=== PATIENT | male | born 1955 | race Caucasian/White ===

== ENCOUNTER 2019-11-19 01:57 | Inpatient (IN) ==
[2019-11-19] MEDS ORDERED: IOPAMIDOL 100 ML BOTTLE IV ONE (01:58)
[2019-11-19] MEDS ORDERED: 0.9 % SODIUM CHLORIDE 2,000 ML IV ONE (02:04)
[2019-11-19] MEDS ORDERED: ONDANSETRON 4 MG/2 ML VIAL IV ONE ×2 (02:04→14:40)
[2019-11-19] MEDS ORDERED: HYDROmorphone 0.5 MG/0.5 ML SYRINGE IV PRN ×2 (02:04→15:44)
[2019-11-19] MEDS ORDERED: ACETAMINOPHEN 325 MG TABLET PO ONE (02:04)
--- NOTE | 2019-11-19 02:22 | Emergency Department Note ---
Abdominal Pain HPI General Chief Complaint: Abdominal Pain Stated Complaint: lower left Abd. Pain Time Seen by Provider: 11/19/19 02:04 Source: patient Mode of arrival: EMS Limitations: no limitations History of Present Illness HPI Narrative: Narrative: 64-year-old male presents to [facility] in [place] with left lower quadrant pain for the last 4 days. This is his second round of diverticulitis that he was diagnosed with since getting a colonoscopy a couple of months ago. Anyways he was worked up this morning and had an elevated white count and was sent home with Zofran Flagyl and ciprofloxacin but his symptoms became worse and he developed a fever. So he came back and I was contacted by the physician's esol teacher assistant, Zafar Arroyo out there. I agreed to accept the patient for further work-up and care of diverticulitis. He is transported via ambulance. He notes nausea and vomiting. I reviewed records from [place] which showed a white count of 16.9 normal CMP lactic acid from earlier today. They do not have CT capability out there He notes a history of multiple musculoskeletal surgeries but no belly surgery. He does think he has a inguinal hernia as well Related Data Home Medications Medication Instructions Recorded Confirmed albuterol sulfate 2 puff INHALATION BID 11/19/19 11/19/19 albuterol sulfate [ProAir HFA] 2 inh INHALATION BID 11/19/19 11/19/19 lamotrigine [Lamictal] 200 mg PO QDAY 11/19/19 11/19/19 omeprazole 40 mg PO QDAY 11/19/19 11/19/19 Allergies Allergy/AdvReac Type Severity Reaction Status Date / Time Penicillins Allergy Severe Anaphylaxis Verified 11/19/19 02:02 Sulfa (Sulfonamide AdvReac Intermediate Rash Verified 11/19/19 02:02 Antibiotics) Review of Systems ROS ROS Narrative: Narrative: All systems ED: reviewed and negative except as stated. PFSH Narrative Patient History Narrative: Narrative: Medical/Surgical/Family History All Active Problems (Updated 11/19/19 @ 03:42 by Zafar Nam MD) Incarcerated inguinal hernia (Acute) Diverticulitis (Acute) Depression (Acute) GERD (gastroesophageal reflux disease) (Acute) COPD (chronic obstructive pulmonary disease) (Acute) Social History Smoking Status: Current every day smoker Exam Narrative Narrative: Narrative: He is resting in the bed comfortable. Normocephalic atraumatic. Conjunctive are clear sclerae white nonicteric. No nasal discharge or congestion. Oropharynx pink and moist. Heart is regular rate and rhythm no murmur appreciated. Lungs are clear to auscultation bilaterally without wheezes rales rhonchi or respiratory distress. Abdomen is soft mildly diffusely tender but especially tender at the left lower quadrant-such that he about jumped off the bed. No pedal edema. Alert oriented but febrile General Limitations: no limitations Course Vital Signs Vital signs: Vital Signs Temperature 100.9 F H 11/19/19 01:58 Pulse Rate 50 L 11/19/19 01:58 Respiratory Rate 17 11/19/19 01:58 Blood Pressure 140/103 11/19/19 01:58 Pulse Oximetry (%) 95 11/19/19 01:58 Temperature 100.9 F H 11/19/19 02:14 Pulse Rate 89 11/19/19 03:34 Respiratory Rate 17 11/19/19 01:58 Blood Pressure 117/85 11/19/19 03:34 Pulse Oximetry (%) 96 11/19/19 03:34 [facility] MDM Narrative Medical decision making narrative: Narrative: Likely diverticulitis but other intra-abdominal pathology such as abscess, masses, obstruction etc. cannot be ruled out. CT scan of the abdomen and pelvis with contrast is ordered along with repeat lactic acid. Start IV fluids Dilaudid Zofran. He is already had antibiotics today so we will hold off for now. Tylenol for fever He does not have a lactic acidosis. CT scan shows a loop of large bowel with diverticulitis inside of the left inguinal hernia. Discussed this finding with the surgeon on-call, Dr. Binh Zuniga. He agreed to accept the patient for further care and evaluation in the hospital. I will start him on some cefepime as he is allergic to penicillin and write orders. Dr. Zuniga will plan on doing surgery later this afternoon I discussed these findings with the patient. He is agreeable with the plan. I will give him some Protonix for his GERD Lab Data Lab results reviewed: Yes I reviewed the patient's lab results. Labs: Lab Results 11/19/19 11/19/19 Range/Units 02:15 02:15 VBG Lactic Acid 1.2 (0.5-2.0) mmol/L POC Creatinine 1.2 (0.7-1.2) mg/dl Radiology Data Radiology results reviewed: Yes I reviewed the patient's radiology results. Radiology results narrative: CT scan of the abdomen pelvis with contrast shows diverticulitis in the sigmoid colon-a loop of which may be incarcerated in the inguinal hernia on the left. Discharge Plan Patient/Caregiver Discharge Instructions Pt seen by SQUIRREL WORKER/PA only: No Clinical Impression: Incarcerated inguinal hernia, Diverticulitis Patient Disposition: Xfer As Inpt ([facility]) Condition: Serious Follow up with: Binh Zuniga MD [Physician] - Prescriptions: No Action lamotrigine [Lamictal] 200 mg Tablet 200 mg PO QDAY RF: 0 omeprazole 40 mg Capsule,Delayed Release(Dr/Ec) 40 mg PO QDAY RF: 0 albuterol sulfate 90 mcg/actuation Hfa Aerosol Inhaler 2 puff INHALATION BID RF: 0 albuterol sulfate [ProAir HFA] 90 mcg/actuation Hfa Aerosol Inhaler 2 inh INHALATION BID RF: 0
[2019-11-19 02:29] LABS: POC Creatinine 1.2 mg/dl (0.7-1.2)
[2019-11-19] MEDS ORDERED: PANTOPRAZOLE 40 MG TABLET PO ONE (03:25)
[2019-11-19] MEDS ORDERED: NALOXONE HCL 0.4 MG/ML VIAL IV PRN ×2 (03:43→15:44)
[2019-11-19] MEDS ORDERED: ALBUTEROL SULFATE 200 PUFF INHALER INH PRN ×2 (03:43→17:26)
[2019-11-19] MEDS ORDERED: ONDANSETRON 4 MG/2 ML VIAL IV PRN ×3 (03:43→17:26)
[2019-11-19] MEDS: morphine 2 MG/ML VIAL IV PRN ×3 (04:33→08:02)
[2019-11-19] MEDS: CEFEPIME 2 GM VIAL IV SCH ×3 (05:51→20:48)
[2019-11-19] MEDS: 0.9 % SODIUM CHLORIDE 1,000 ML IV SCH ×4 (05:51→18:00)
--- NOTE | 2019-11-19 06:02 | Cat Scan Report ---
INDICATION: LLQ pain. History of previous diverticulitis COMPARISON: Prior examination dated 07/25/2019 TECHNIQUE: Axial images were obtained through the abdomen and pelvis. Sagittally and coronally reformatted images. 80 mL Isovue 370 injected intravenously. Oral contrast material was not administered FINDINGS: Lung bases:Mild bilateral lower lobe dependent atelectasis. There is a moderate hiatal hernia. Distal esophagus contains fluid. There is no pleural effusion. No pericardial effusion. Liver:Negative. No focal intrahepatic mass. No focal abnormality. Liver contour is smooth. No evidence for cirrhosis Gallbladder, bilary:No calcified gallstones. No gallbladder wall thickening. No dilated intra or extrahepatic bile ducts. Spleen:No splenomegaly. Normal enhancement of splenic and portal veins. Pancreas:No pancreatic mass. No peripancreatic abnormality Adrenal glands:Negative Kidneys, ureters, bladder:No solid or cystic renal mass. No hydronephrosis. No obstructing calculi. There is no hydroureter. No ureteral stone No bladder calculi or detectable mass Gastrointestinal: There is distal descending colon and sigmoid colon diverticulosis. There is diverticulitis at the descending sigmoid junction with pericolonic infiltration. No discrete abscess. There is a left inguinal hernia which contains colon. There is wall thickening and pericolonic infiltration. This is probably diverticulitis within a left inguinal hernia. Ischemic bowel is not excluded. There is mural enhancement. No focal fluid collection or extraluminal abscess. Small bowel is negative. No mechanical small bowel obstruction. Stomach and duodenum are unremarkable Appendix: The appendix is negative Vascular:Negative abdominal aorta. There is calcified plaque but no abdominal aortic aneurysm. Superior mesenteric artery and celiac trunk are normal. Normal opacification of the inferior mesenteric artery Lymphatic:No retroperitoneal or mesenteric adenopathy Mesentery, peritoneum: No free intraperitoneal fluid. No mesenteric or retroperitoneal mass. Reproductive:Prostate is not significantly enlarged Musculoskeletal:No lumbar compression fractures. Sacrum and pelvis are negative. No hip fracture.. There is a left inguinal hernia which contains colon. As described above there is wall thickening and pericolonic inflammatory change most consistent with diverticulitis within the hernia sac. Bowel ischemia is not excluded. There is also an umbilical hernia. This is small with cross-sectional diameter of the hernia defect measuring 7 mm. There is mesenteric fat within this umbilical hernia. There is some increased density which may represent fat ischemia or infarction. IMPRESSION: 1. Left lower quadrant diverticulitis 2. Left inguinal hernia containing colon. Findings are most consistent with diverticulitis within the hernia sac. Ischemic bowel is also possible 3. Small umbilical hernia containing mesenteric fat. It is density within the fat which may indicate fat infarction 4. Moderate hiatal hernia The exam was performed using radiation dose optimization techniques including, but not limited to, automated exposure control, adjustment of the mA and/or kV according to patient size and use of iterative reconstruction technique. Interpreted and Authenticated by: Jack Tiwari 11/19/19
[2019-11-19] MEDS ORDERED: HYDROmorphone 1 MG/ML SYRINGE IV PRN (08:29)
[2019-11-19] MEDS ORDERED: lamoTRIgine 100 MG TABLET PO SCH (09:00)
[2019-11-19] MEDS ORDERED: NICOTINE 21 MG PATCH TOPICAL SCH (10:00)
[2019-11-19] MEDS ORDERED: metroNIDAZOLE 500 MG/100 ML BAG IV SCH (14:00)
--- NOTE | 2019-11-19 14:14 | General Surg History&Physical ---
HPI History of Present Illness Patient information: Note initiated : 11/19/19 at 1:50 pm Service Date, if different from initiated Date: [] Patient: Adonis Henson a 64 y/o M admitted on 11/19/19 for Lt Lower Abd Pain. Chief Complaint: [] History of present illness: Mr. Henson is a 64 year old M admitted with pain in his left lower abdomen. The patient has a history of left inguinal hernia for greater than a year. He has a four-day history of crampy pain in his left groin. This was followed by severe swelling and tenderness with sweats. He did not have nausea vomiting. He noted that the pain became much more severe yesterday. He was seen in the emergency room in [place] late yesterday evening and transferred with presumptive diagnosis of incarcerated hernia. CT shows sigmoid diverticulitis and incarcerated of the inflamed segment and the hernia with severe tissue edema. Because of poor perfusion there is concern about possible vascular compromise of the incarcerated segment. He is developing some erythema of the hernia site. Patient is counseled for inguinal exploration with attempts at reduction but with the possibility of need for laparotomy with colon resection and colostomy. Constitutional Constitutional: Present anorexia, chills, fever(s), malaise and night sweats EENT Eyes: Absent blurry vision and pain Ears: Absent decreased hearing and tinnitus Nose, mouth and throat: Present abnormal hearing; Absent dizziness, dysphagia and hoarseness Cardiovascular Cardiovascular: Present dyspnea on exertion, lightheadedness and rapid heart rate; Absent chest pain, claudication and pedal edema Respiratory Respiratory: Absent cough, dyspnea, wheezing and pain with cough Gastrointestinal Gastrointestinal: Present change in stool character, constipation and nausea; Absent vomiting Genitourinary Genitourinary: change in urinary stream, scrotal swelling, testicular mass and testicular pain Musculoskeletal Musculoskeletal: Present abnormal gait and myalgias Integumentary Integumentary: Absent pruritus and rash Neurological Neurological: Present dizziness Psychiatric Psychiatric: Present abnormal sleep pattern, behavioral changes, irritability, mood swings and other (bipolar disorder) Endocrine Endocrine: Present excessive sweating and palpitations Hematologic/Lymphatic Hematologic/Lymphatic: Absent easy bleeding, easy bruising and lymphadenopathy Allergic/Immunologic Allergic/Immunologic: Absent tongue swelling, throat swelling, itchy eyes, uticaria, wheezing and lip swelling PFSH PFS Family History (Updated 11/19/19 @ 14:03 by Eileen Zuniga MD) Mother No problems noted. Mother , complications a small bowel obstruction No problems noted. Father , complications of chronic obstructive lung disease No problems noted. Social History (Updated 11/20/19 @ 14:11 by Eileen Zuniga MD) smoking status: Current every day smoker alcohol intake frequency: does not drink substance use type: does not use MEDS/ALLERGIES Home Medications and Allergies Home Medications Medication Instructions Recorded Confirmed Type albuterol sulfate 2 puff INHALATION BID 11/19/19 11/19/19 History albuterol sulfate [ProAir HFA] 2 inh INHALATION BID 11/19/19 11/19/19 History lamotrigine [Lamictal] 200 mg PO QDAY 11/19/19 11/19/19 History omeprazole 40 mg PO QDAY 11/19/19 11/19/19 History quetiapine [Seroquel] 200 mg PO QHS 11/19/19 11/19/19 History Allergies Allergy/AdvReac Type Severity Reaction Status Date / Time Penicillins Allergy Severe Anaphylaxis Verified 11/19/19 02:02 Sulfa (Sulfonamide AdvReac Intermediate Rash Verified 11/19/19 02:02 Antibiotics) Physical Examination Vital Signs Vital signs: Temp Pulse Resp BP Pulse Ox 99.6 F H 88 16 124/69 93 11/19/19 12:00 11/19/19 12:00 11/19/19 12:00 11/19/19 12:00 11/19/19 12:00 General physical appearance General physical exam: well developed, well nourished, no distress and severe pa in Eyes Eye exam: PERRL and normal ocular movement ENT ENT exam: normal nares and no congestion Head Head exam IM: Present atraumatic, normal inspection and normocephalic Neck Neck exam: no masses, no bruits, trachea midline and no venous distension Cardiovascular Cardiovascular exam IM: Present normal rate and rhythm, RRR, +S1 and +S2; Absent JVD Respiratory Respiratory exam: normal expansion, normal respiratory effort, clear to percussion and clear to auscultation Abdomen Abdomen: Present tender (exquisite tenderness left lower quadrant) and bowel sounds (hyperactive bowel sounds) Hernia: Present inguinal (incarcerated left inguinal hernia) Integumentary Integumentary: Present no rash, no growths and no abnormal pigmentation Neurologic Neurologic: Present normal coordination and normal sensation Musculoskeletal Musculoskeletal: Present normal gait and normal posture Psychiatric Psychiatric: Present oriented to time, oriented to person, oriented to place, speech is normal and memory intact Results Labs Result diagrams: 11/20/19 06:00 11/20/19 06:00 Labs: All other labs normal. A/P Assessment and plan (1) Incarcerated inguinal hernia: Status: Acute (2) Depression: Status: Acute Qualifiers: Active/Remission status: remission status unspecified Depression Type: major depressive disorder Major depression recurrence: unspecified whether recurrent Qualified Code(s): F32.9 - Major depressive disorder, single episode, unspecified (3) GERD (gastroesophageal reflux disease): Status: Acute (4) Diverticulitis: Status: Acute (5) COPD (chronic obstructive pulmonary disease): Status: Acute Qualifiers: COPD type: emphysema Narrative A/P Narrative: patient has incarcerated colon with diverticulitis in left inguinal hernia. He will need emergency exploration and may potentially need colon resection with colostomy. He is informed of this and wishes to proceed with surgery. Time Spent With Patient Time: Total time spent is greater than 50% in coordination of care (as documented) at patient's floor/unit and/or counseling patient:
[2019-11-19] MEDS ORDERED: KETAMINE 100 MG/ML ML IV ONE (14:40)
[2019-11-19] MEDS ORDERED: DEXAMETHASONE 10 MG/ML VIAL IV ONE (14:40)
[2019-11-19] MEDS ORDERED: fentaNYL 250 MCG/5 ML VIAL IV ONE (14:40)
[2019-11-19] MEDS ORDERED: HYDROmorphone 1 MG/ML SYRINGE IV ONE (14:40)
[2019-11-19] MEDS ORDERED: PROPOFOL 200 MG/20 ML VIAL IV ONE (14:40)
[2019-11-19] MEDS ORDERED: HETASTARCH 6% 500 ML BAG IV ONE (14:40)
[2019-11-19] MEDS ORDERED: ROPIVACAINE HCL/PF 30 ML VIAL IJ ONE (14:40)
[2019-11-19] MEDS ORDERED: LIDOCAINE HCL/PF 100 MG/5 ML SYRINGE IV ONE (14:40)
[2019-11-19] MEDS ORDERED: ROCURONIUM 10 MG/ML ML IV ONE (14:40)
[2019-11-19] MEDS ORDERED: SUGAMMADEX SODIUM 200 MG/2 ML VIAL IV ONE (14:40)
[2019-11-19] MEDS ORDERED: IPRATROPIUM/ALBUTEROL 3 ML AMPUL.NEB NEB PRN (15:44)
[2019-11-19] MEDS ORDERED: PROMETHAZINE 25 MG/ML VIAL IV PRN (15:44)
[2019-11-19] MEDS ORDERED: LACTATED RINGERS 250 ML IV PRN (15:44)
[2019-11-19] MEDS ORDERED: ACETAMINOPHEN 1,000 MG/100 ML BOTTLE IV ONE (15:44)
[2019-11-19] MEDS ORDERED: MEPERIDINE 25 MG/ML SYRINGE IV PRN (15:44)
[2019-11-19] MEDS ORDERED: diphenhydrAMINE 50 MG/ML VIAL IV PRN (15:44)
[2019-11-19] MEDS ORDERED: LACTATED RINGERS 1,000 ML IV SCH (15:45)
[2019-11-19] MEDS ORDERED: BACITRACIN 50,000 UNIT VIAL IR ONE (15:57)
--- NOTE | 2019-11-19 16:13 | Brief Operative Note ---
Brief Operative Note Date of procedure: 11/19/19 Pre-op diagnosis: incarcerated left inguinal hernia with partial colonic obstr uction Post-op diagnosis: other (incarcerated left inguinal hernia with strangulated appendiceal epiploica left colon ) Procedure: LEFT GROIN EXPLORATION WITH EXCISION OF APPENDICEAL EPIPLOICA AND PRIMARY LEFT INGUINAL HERNIA REPAIR Grafts/Implants: No (#7 SANJUANITA DRAIN IN SCROTUM) Anesthesia: GLMA Findings: INCARCERATED APPENDICEAL EPIPLOICA FROM SIGMOID COLON WITH SANCHEZ TYPE HERNIA OF SIGMOID WITHOUT OBSTRUCTION; COLON WAS VIABLE Complications: none Surgeon: Eileen Zuniga Estimated blood loss (cc): 25 Specimens Removed/Pathology: none sent Condition: stable Disposition: PACU
[2019-11-19] MEDS: fentaNYL 100 MCG/2 ML VIAL IV PRN ×4 (16:35→16:52)
[2019-11-19] MEDS: ACETAMINOPHEN 1,000 MG/100 ML BOTTLE IV SCH ×2 (17:59→23:17)
[2019-11-19] MEDS ORDERED: OMEPRAZOLE 20 MG CAPSULE PO ONE (20:28)
[2019-11-19] MEDS: QUEtiapine 100 MG TABLET PO SCH (20:48)
[2019-11-19] MEDS: HYDROmorphone 1 MG/ML SYRINGE IV PRN (20:49)
[2019-11-19] MEDS ORDERED: ALBUTEROL SULFATE 200 PUFF INHALER INH SCH (21:00)
[2019-11-19] MEDS: metroNIDAZOLE 500 MG/100 ML BAG IV SCH (22:24)
[2019-11-20] MEDS: 0.9 % SODIUM CHLORIDE 1,000 ML IV SCH ×3 (00:40→12:37)
[2019-11-20] MEDS: metroNIDAZOLE 500 MG/100 ML BAG IV SCH ×4 (04:13→23:30)
[2019-11-20] MEDS: HYDROmorphone 1 MG/ML SYRINGE IV PRN ×4 (04:13→20:12)
[2019-11-20] MEDS: ACETAMINOPHEN 1,000 MG/100 ML BOTTLE IV SCH ×3 (04:55→16:20)
[2019-11-20 07:09] LABS: ALT/SGPT 11 U/l (0-40); AST/SGOT 12 U/l (0-37); Albumin 3.1 gm/dL (3.2-5.2); Albumin/Globulin Ratio 1.4 (1.0-2.3); Alkaline Phosphatase 68 U/L (39-117); Bilirubin,Direct < 0.2 mg/dL (0.0-0.3); Bilirubin,Total 0.3 mg/dL (0.0-1.0); Blood Urea Nitrogen 13 mg/dl (8-23); Calcium 8.3 mg/dl (8.6-10.4); Carbon Dioxide 20 mmol/L (22-30); Chloride 103 mmol/L (96-108); Globulin 2.2 gm/dL (2.2-3.7); Glomerular Filtration Rate 64; Glucose 227 mg/dL (70-105); Lactate Dehydrogenase 133 U/L (94-250); Triglycerides 40 mg/dl (<150); Uric Acid 4.6 mg/dL (2.5-8.0)
[2019-11-20 07:11] LABS: Phosphorous 2.3 mg/dL (2.7-4.5)
[2019-11-20 07:12] LABS: Basophils # (Auto) 0.02 K/mcL (0.00-0.30); Basophils % (Auto) 0.1 % (0.0-2.0); Eosinophils # (Auto) 0.01 K/mcL (0.00-0.70); Eosinophils % (Auto) 0 % (0.0-7.0); Granulocytes % (Auto) 89.4 % (38.0-78.0); Hematocrit 33.6 % (40.1-51.0); Hemoglobin 11.3 g/dL (13.7-17.5); Lymphocytes # (Auto) 1.04 K/mcL (1.50-4.80); Lymphocytes % (Auto) 4.9 % (15.5-49.0); Mean Cell Volume 95.2 fL (80.0-100.0); Mean Corpuscular HGB Conc 33.6 g/dL (31.0-36.0); Mean Platelet Volume 10.6 fL (7.4-10.4); Monocytes % (Auto) 5.6 % (1.0-12.0); Platelet Count 179 K/mcL (140-440); RBC 3.53 M/mcL (4.63-6.08); Red Cell Distribution Width 14.4 % (11.5-14.5); WBC 21.4 K/mcL (4.50-11.00)
[2019-11-20] MEDS: OMEPRAZOLE 20 MG CAPSULE PO SCH (07:55)
[2019-11-20] MEDS ORDERED: LAMOTRIGINE 200 MG PO SCH (09:00)
[2019-11-20] MEDS: lamoTRIgine 100 MG TABLET PO SCH (09:41)
[2019-11-20] MEDS: NICOTINE 21 MG PATCH TOPICAL SCH (09:42)
[2019-11-20] MEDS: CEFEPIME 2 GM VIAL IV SCH ×2 (09:42→20:12)
--- NOTE | 2019-11-20 14:18 | General Surgery Progress Note ---
SUBJECTIVE Subjective Patient information: Note initiated : 11/20/19 at 2:13 pm Service Date, if different from initiated Date: [] Patient: Adonis Henson 64 y/o M admitted on 11/19/19 for Lt Lower Abd Pain. Chief Complaint: [] Interval history: patient has significant decrease in pain. Scrotal swelling is much improved. He has moderate to moderately severe tenderness left lower quadrant. White blood count 21.4, hemoglobin 11.3, hematocrit 33.6, glucose 227 Constitutional Vitals: Vital Signs Temp Pulse Resp BP Pulse Ox 98.3 F 80 18 101/65 94 11/20/19 11:24 11/20/19 11:24 11/20/19 11:24 11/20/19 11:24 11/20/19 11:24 Period Temp Pulse Resp BP Sys/Oliver Pulse Ox Last 24 Hr 97.5 F-99.0 F 77-105 16-22 101-166/56-94 90-99 Intake and Output 11/20/19 11/20/19 11/20/19 05:59 13:59 21:59 Intake Total 2267 1600 Output Total 920 1520 Balance 1347 80 Weight 222 lb 11.2 oz 222 lb 11.2 oz Patient Weight 11/21/19 05:59 Weight 222 lb 11.2 oz Intake & Output: Intake & Output 11/20/19 11/20/19 11/20/19 05:59 13:59 21:59 Intake Total 2267 1600 Output Total 920 1520 Balance 1347 80 Weight 222 lb 11.2 oz 222 lb 11.2 oz Intake: IV 2067 1200 Sodium Chloride 0.9% 1,000 ml @ 1667 1000 100 mls/hr IV .Q10H [facility] Rx#: [id number] Oral 200 400 Output: Drainage 20 Left LULY Drain 20 Drainage 20 Left LULY Drain 20 Urine Catheter Amount 900 1500 Uretheral ([place]) 750 Other: Urine Appearance Clear Clear Uretheral (Corona) Clear Urine Color Dark Yellow Bright Yellow Uretheral ([place]ona) Dark Yellow Urine Odor Strong Normal Uretheral ([place]) Normal Head Head exam: Present atraumatic, normal inspection and normocephalic Eye Eye exam: Present EOMI Pupils: Present PERRL ENT ENT exam: Present mucous membranes moist, normal exam and normal oropharynx Neck Neck exam: Present full ROM; Absent lymphadenopathy, tenderness and thyromegaly Respiratory Respiratory exam: Present CTAB; Absent rales, rhonchi and wheezes Cardiovascular Cardiovascular exam: Present RRR, +S1 and +S2; Absent bradycardia and JVD GI/Abdominal GI/Abdominal exam: Present soft, distended, guarding and tenderness (tenderness left lower quadrantand hypogastric) Extremities Exam Extremities exam: Present normal inspection and neurovascular intact; Absent pedal edema Back Exam Back exam: Present normal inspection Neurological Exam Neurological exam: Present alert, CN II-XII intact, oriented X3 and reflexes normal; Absent normal gait Psychiatric Psychiatric exam: Present anxious and flat affect A/P Assessment and plan (1) Diverticulitis: Status: Acute (2) Incarcerated inguinal hernia: Status: Acute Narrative A/P Narrative: patient will be continued on present antibiotic therapy. Time Spent With Patient Time: Total time spent is greater than 50% in coordination of care (as documented) at patient's floor/unit and/or counseling patient:
[2019-11-20] MEDS: QUEtiapine 100 MG TABLET PO SCH (20:12)
[2019-11-21] MEDS: 0.9 % SODIUM CHLORIDE 1,000 ML IV SCH ×3 (00:15→21:27)
[2019-11-21] MEDS: HYDROmorphone 1 MG/ML SYRINGE IV PRN ×4 (03:19→19:08)
[2019-11-21] MEDS: metroNIDAZOLE 500 MG/100 ML BAG IV SCH ×4 (04:06→21:29)
[2019-11-21 07:29] LABS: Basophils # (Auto) 0.01 K/mcL (0.00-0.30); Basophils % (Auto) 0.1 % (0.0-2.0); Eosinophils # (Auto) 0.02 K/mcL (0.00-0.70); Eosinophils % (Auto) 0.1 % (0.0-7.0); Granulocytes % (Auto) 80.4 % (38.0-78.0); Hematocrit 31.8 % (40.1-51.0); Hemoglobin 10.7 g/dL (13.7-17.5); Lymphocytes % (Auto) 11.4 % (15.5-49.0); Mean Cell Volume 95.5 fL (80.0-100.0); Mean Corpuscular HGB Conc 33.6 g/dL (31.0-36.0); Mean Platelet Volume 11.1 fL (7.4-10.4); Platelet Count 195 K/mcL (140-440); RBC 3.33 M/mcL (4.63-6.08); Red Cell Distribution Width 14.6 % (11.5-14.5); WBC 17.6 K/mcL (4.50-11.00)
[2019-11-21 08:12] LABS: ALT/SGPT 11 U/l (0-40); AST/SGOT 12 U/l (0-37); Albumin/Globulin Ratio 1.2 (1.0-2.3); Alkaline Phosphatase 64 U/L (39-117); Bilirubin,Direct < 0.2 mg/dL (0.0-0.3); Bilirubin,Total 0.3 mg/dL (0.0-1.0); Blood Urea Nitrogen 14 mg/dl (8-23); Calcium 8.2 mg/dl (8.6-10.4); Carbon Dioxide 22 mmol/L (22-30); Chloride 104 mmol/L (96-108); Globulin 2.5 gm/dL (2.2-3.7); Glomerular Filtration Rate 90; Glucose 115 mg/dL (70-105); Lactate Dehydrogenase 129 U/L (94-250); Triglycerides 83 mg/dl (<150); Uric Acid 4.7 mg/dL (2.5-8.0)
[2019-11-21 08:19] LABS: Phosphorous 2.2 mg/dL (2.7-4.5)
[2019-11-21] MEDS: OMEPRAZOLE 20 MG CAPSULE PO SCH (08:31)
[2019-11-21] MEDS: lamoTRIgine 100 MG TABLET PO SCH (08:31)
[2019-11-21] MEDS: CEFEPIME 2 GM VIAL IV SCH ×2 (08:35→21:29)
[2019-11-21] MEDS: NICOTINE 21 MG PATCH TOPICAL SCH (09:53)
--- NOTE | 2019-11-21 15:27 | General Surgery Progress Note ---
SUBJECTIVE Subjective Patient information: Note initiated : 11/21/19 at 3:24 pm Service Date, if different from initiated Date: [] Patient: Adonis Henson 64 y/o M admitted on 11/19/19 for Lt Lower Abd Pain. Chief Complaint: [] Principal diagnosis: diverticulitis; incarcerated left inguinal hernia with colon obstruction Interval history: patient states that he feels better. He is been afebrile. His pain is much improved. He's had flatus without difficulty. He denies nausea. White blood count 17.6, hemoglobin 10.7, hematocrit 31.8. Patient is stable enough to have Corona catheter removed Constitutional Vitals: Vital Signs Temp Pulse Resp BP Pulse Ox 99.0 F 88 18 98/61 95 11/21/19 12:00 11/21/19 12:00 11/21/19 12:00 11/21/19 12:00 11/21/19 12:00 Period Temp Pulse Resp BP Sys/Oliver Pulse Ox Last 24 Hr 97.4 F-99.0 F 69-88 18-22 98-129/59-79 95-95 Intake and Output 11/21/19 11/21/19 11/21/19 05:59 13:59 21:59 Intake Total 1798 2620 Output Total 2245 1755 Balance -447 865 Intake & Output: Intake & Output 11/21/19 11/21/19 11/21/19 05:59 13:59 21:59 Intake Total 1798 2620 Output Total 2245 1755 Balance -447 865 Intake: IV 1198 1100 Sodium Chloride 0.9% 1,000 ml @ 1000 1000 100 mls/hr IV .Q10H [facility] Rx#: [id number] Oral 600 1520 Output: Drainage 5 Left LULY Drain 5 Drainage 20 Left LULY Drain 20 Urine Catheter Amount 2225 1750 Other: Meal Breakfast Percent of Meal Consumed 100% Feeding Ability Independent Urine Appearance Clear Clear Uretheral ([place]) Clear Urine Color Bright Yellow Bright Yellow Uretheral ([place]) Bright Yellow Urine Odor Normal Head Head exam: Present atraumatic, normal inspection and normocephalic Eye Eye exam: Present EOMI Pupils: Present PERRL ENT ENT exam: Present mucous membranes moist, normal exam and normal oropharynx Neck Neck exam: Present full ROM; Absent lymphadenopathy, tenderness and thyromegaly Respiratory Respiratory exam: Present CTAB; Absent rales, rhonchi and wheezes Cardiovascular Cardiovascular exam: Present RRR, +S1 and +S2; Absent bradycardia and JVD GI/Abdominal GI/Abdominal exam: Present soft, distended, guarding and tenderness (tenderness left lower quadrantand hypogastric) Extremities Exam Extremities exam: Present normal inspection and neurovascular intact; Absent pedal edema Back Exam Back exam: Present normal inspection Neurological Exam Neurological exam: Present alert, CN II-XII intact, oriented X3 and reflexes normal; Absent normal gait Psychiatric Psychiatric exam: Present anxious and flat affect A/P Assessment and plan (1) Incarcerated inguinal hernia: Status: Acute (2) Diverticulitis: Status: Acute (3) Depression: Status: Acute Qualifiers: Depression Type: major depressive disorder Major depression recurrence: unspecified whether recurrent Active/Remission status: remission status unspecified Qualified Code(s): F32.9 - Major depressive disorder, single episode, unspecified Narrative A/P Narrative: patient will continue present antibiotics Corona catheter is discontinued Follow-up CT in 2 more days Time Spent With Patient Time: Total time spent is greater than 50% in coordination of care (as documented) at patient's floor/unit and/or counseling patient:
[2019-11-21] MEDS: QUEtiapine 100 MG TABLET PO SCH (21:37)
[2019-11-22] MEDS: HYDROmorphone 1 MG/ML SYRINGE IV PRN ×3 (00:19→12:18)
[2019-11-22] MEDS: metroNIDAZOLE 500 MG/100 ML BAG IV SCH ×2 (04:02→10:07)
[2019-11-22] MEDS: 0.9 % SODIUM CHLORIDE 1,000 ML IV SCH (04:04)
[2019-11-22 06:56] LABS: Basophils # (Auto) 0.02 K/mcL (0.00-0.30); Basophils % (Auto) 0.2 % (0.0-2.0); Eosinophils # (Auto) 0.25 K/mcL (0.00-0.70); Eosinophils % (Auto) 2.3 % (0.0-7.0); Granulocytes % (Auto) 63.7 % (38.0-78.0); Hematocrit 31.4 % (40.1-51.0); Hemoglobin 10.4 g/dL (13.7-17.5); Lymphocytes # (Auto) 2.53 K/mcL (1.50-4.80); Lymphocytes % (Auto) 23.7 % (15.5-49.0); Mean Cell Volume 96.6 fL (80.0-100.0); Mean Corpuscular HGB Conc 33.1 g/dL (31.0-36.0); Mean Platelet Volume 10.7 fL (7.4-10.4); Monocytes # (Auto) 1.08 K/mcL (0.10-0.90); Monocytes % (Auto) 10.1 % (1.0-12.0); Platelet Count 230 K/mcL (140-440); RBC 3.25 M/mcL (4.63-6.08); Red Cell Distribution Width 14.4 % (11.5-14.5); WBC 10.7 K/mcL (4.50-11.00)
[2019-11-22 07:13] LABS: ALT/SGPT 22 U/l (0-40); AST/SGOT 21 U/l (0-37); Albumin 3.1 gm/dL (3.2-5.2); Albumin/Globulin Ratio 1.3 (1.0-2.3); Alkaline Phosphatase 66 U/L (39-117); Bilirubin,Direct < 0.2 mg/dL (0.0-0.3); Bilirubin,Total 0.5 mg/dL (0.0-1.0); Blood Urea Nitrogen 13 mg/dl (8-23); Calcium 8.1 mg/dl (8.6-10.4); Carbon Dioxide 23 mmol/L (22-30); Chloride 105 mmol/L (96-108); Globulin 2.3 gm/dL (2.2-3.7); Glomerular Filtration Rate 90; Glucose 98 mg/dL (70-105); Lactate Dehydrogenase 131 U/L (94-250); Triglycerides 81 mg/dl (<150); Uric Acid 5.7 mg/dL (2.5-8.0)
[2019-11-22 07:16] LABS: Phosphorous 2.8 mg/dL (2.7-4.5)
[2019-11-22] MEDS: OMEPRAZOLE 20 MG CAPSULE PO SCH (10:03)
[2019-11-22] MEDS: lamoTRIgine 100 MG TABLET PO SCH (10:04)
[2019-11-22] MEDS: CEFEPIME 2 GM VIAL IV SCH (10:06)
[2019-11-22] MEDS: NICOTINE 21 MG PATCH TOPICAL SCH (10:08)
--- NOTE | 2019-11-22 13:32 | Discharge Summary ---
Discharge Provider Provider Patient information: Note initiated : 11/22/19 at 1:30 pm Service Date, if different from initiated Date: [] Patient: Adonis Henson 64 y/o M admitted on 11/19/19 for Lt Lower Abd Pain. Chief Complaint: [] Date of admission: 11/19/19 05:00 Discharge date: 11/22/19 Admitting clinician: Eileen Zuniga Attending physician on admission: Eileen Zuniga Consults: 11/19/19 Consult to Physician [CONS] Stat Comment: Consulting Provider: Eileen Zuniga Reason For Exam: Physician to Consult Attending physician on discharge: Eileen Zuniga Discharging clinician: Eileen Zuniga COURSE Hospital Course Hospital course: 64-year-old male who presented with a four-day history of a painful left inguinal mass. He has a long history of left inguinal hernia. He states that usually his colon gets stuck in his hernia and he can reduce it. This time however he cannot reduce it and the mass became harder and more painful. He also developed fever with nausea and vomiting. He was seen in the emergency room and CT showed an incarcerated left inguinal hernia containing left: With diverticulitis in the colon entrapped in the hernia sac. The patient had urgent exploration of the inguinal area and was found to have very large segment of colon with the appendiceal epiploica tightly encased in the hernia sac and associated inflammation. The epiploica was explored and was edematous and inflamed but there was no fecal matter associated with it. It was reduced back into the peritoneal cavity and a standard neck FRANCES hernia repair was done with a relaxing incision in the anterior fascia of the internal OBLIQUE muscle. The area was thoroughly washed with bacitracin solution and the cord was placed anatomically with the external oblique aponeurosis being closed. A #7 Abdelrahman drain was placed in the scrotum in the area of the previous incarcerated hernia sac and extended along the external oblique aponeurosis to an area above and lateral to the repair. The patient should had a white count of 21,000 but is now down to 10,700. He has been afebrile and has had regular bowel movements. He denies nausea. Patient is felt to be stable for discharge home Discharge diagnosis: incarcerated left inguinal hernia with strangulationof appendiceal epiploic Secondary discharge diagnosis: acute diverticulitis Reason for admission: incarcerated left inguinal hernia with strangulation Procedures: left groin exploration with jay inguinal hernia repair without mesh Pertinent studies/significant findings: CT of abdomen and pelvis with IV contrast Complications: none Time Spent with Patient Time attestation: Total time spent providing and/or coordinating discharge services: Physical Examination Vital Signs Vital signs: Temp Pulse Resp BP Pulse Ox 98.6 F 88 20 133/79 94 11/22/19 11:11 11/22/19 11:11 11/22/19 11:11 11/22/19 11:11 11/22/19 11:11 General physical appearance General physical exam: well developed, well nourished, no distress and no pain Eyes Eye exam: PERRL and normal ocular movement ENT ENT exam: normal nares and no congestion Head Head exam IM: Present atraumatic, normal inspection and normocephalic Neck Neck exam: no masses, no bruits, trachea midline and no venous distension Cardiovascular Cardiovascular exam IM: Present normal rate and rhythm, RRR, +S1 and +S2; Absent JVD Abdomen Abdomen: Present tender (tenderness left lower quadrant) and bowel sounds (hyperactive bowel sounds) Hernia: Present inguinal (left inguinal surgical incision) Integumentary Integumentary: Present no rash, no growths, no abnormal pigmentation and other Neurologic Neurologic: Present normal coordination and normal sensation Musculoskeletal Musculoskeletal: Present normal gait and normal posture Psychiatric Psychiatric: Present oriented to time, oriented to person, oriented to place, speech is normal and memory intact Discharge Plan Patient/Caregiver Discharge Instructions Activity: increase activity as tolerated and resume usual activities as tolerated Diet: Regular Diet Prescriptions: New ciprofloxacin HCl [ciprofloxacin HCl] 500 MG tablet 500 mg PO BID Qty: 40 RF: 0 oxycodone-acetaminophen [Endocet] 10-325 mg Tablet 1 tab PO Q4H PRN (Reason: Pain) Qty: 60 RF: 0 levofloxacin [levofloxacin] 750 MG tablet 750 mg PO DAILY Qty: 14 RF: 0 Continued lamotrigine [Lamictal] 200 mg Tablet 200 mg PO QDAY RF: 0 omeprazole 40 mg Capsule,Delayed Release(Dr/Ec) 40 mg PO QDAY RF: 0 albuterol sulfate 90 mcg/actuation Hfa Aerosol Inhaler 2 puff INHALATION BID RF: 0 albuterol sulfate [ProAir HFA] 90 mcg/actuation Hfa Aerosol Inhaler 2 inh INHALATION BID RF: 0 quetiapine [Seroquel] 200 mg Tablet 200 mg PO QHS RF: 0 Other Ambulatory Orders: CT abdomen pelvis w con (Routine) Timeframe: [id number] Facility: [facility] - Location: Radiology Ordered By: Eileen Zuniga Follow Up Plan Follow up with: Eileen Zuniga MD [Physician] - 12/02/19 Patient Disposition: Home, Self-Care Prognosis: Serious Rehab Potential: Good I certify that the patient requires SNF services: No Overall status at discharge: patient is progressing back to baseline Discharge Orders: Discharge Order (Routine); Ordered 11/22/19 Ordered By: Eileen Zuniga Pending Pending Pending: Resuscitation Status Full Code Diet Clear Liquid Diet Start MonNov 19 1401 Albuterol Sulfate (Ventolin) 2 puff INH Q4HP PRN PRN Reason: Shortness Of Breath Last Admin: 11/21/19 09:51 Dose: 2 puff Documented by: HE Cefepime HCl (Maxipime) 2 gm IV Q12H JACK; Protocol Last Admin: 11/22/19 10:06 Dose: 2 gm Documented by: Admin: 11/21/19 21:29 Dose: 2 gm Documented by: MARIA ISABEL Admin: 11/21/19 08:35 Dose: 2 gm Documented by: Admin: 11/20/19 20:12 Dose: 2 gm Documented by: Admin: 11/20/19 09:42 Dose: 2 gm Documented by: Admin: 11/19/19 20:48 Dose: 2 gm Documented by: DIVYA Hydromorphone HCl (Dilaudid) 1 mg IV Q2HP PRN; Protocol PRN Reason: Per Pain Protocol Last Admin: 11/22/19 12:18 Dose: 1 mg Documented by: Admin: 11/22/19 10:01 Dose: 1 mg Documented by: Admin: 11/22/19 00:19 Dose: 1 mg Documented by: MARIA ISABEL Admin: 11/21/19 19:08 Dose: 1 mg Documented by: MARIA ISABEL Admin: 11/21/19 12:46 Dose: 1 mg Documented by: Admin: 11/21/19 08:35 Dose: 1 mg Documented by: Admin: 11/21/19 03:19 Dose: 1 mg Documented by: Admin: 11/20/19 20:12 Dose: 1 mg Documented by: Admin: 11/20/19 15:58 Dose: 1 mg Documented by: Admin: 11/20/19 13:23 Dose: 1 mg Documented by: Admin: 11/20/19 04:13 Dose: 1 mg Documented by: Admin: 11/19/19 20:49 Dose: 1 mg Documented by: DIVYA Sodium Chloride (Sodium Chloride 0.9%) 1,000 mls @ 100 mls/hr IV .Q10H JACK Last Admin: 11/22/19 04:04 Dose: Not Given Documented by: MARIA ISABEL Admin: 11/21/19 21:27 Dose: 100 mls/hr Documented by: MARIA ISABEL Infusion: 11/21/19 21:27 Dose: 100 mls/hr Documented by: MARIA ISABEL Admin: 11/21/19 12:29 Dose: 100 mls/hr Documented by: Infusion: 11/21/19 10:15 Dose: 100 mls/hr Documented by: Admin: 11/21/19 00:15 Dose: 100 mls/hr Documented by: Infusion: 11/20/19 22:37 Dose: 100 mls/hr Documented by: Admin: 11/20/19 12:37 Dose: 100 mls/hr Documented by: Infusion: 11/20/19 10:40 Dose: 100 mls/hr Documented by: Admin: 11/20/19 06:14 Dose: Not Given Documented by: Admin: 11/20/19 00:40 Dose: 100 mls/hr Documented by: Infusion: 11/20/19 00:40 Dose: 100 mls/hr Documented by: Admin: 11/19/19 18:00 Dose: 100 mls/hr Documented by: SHELBY Metronidazole (Flagyl) 500 mg in 100 mls @ 100 mls/hr IV Q6H JACK; Protocol Last Infusion: 11/22/19 11:10 Dose: 0 mls/hr Documented by: Admin: 11/22/19 10:07 Dose: 100 mls/hr Documented by: Infusion: 11/22/19 05:02 Dose: 100 mls/hr Documented by: Admin: 11/22/19 04:02 Dose: 100 mls/hr Documented by: MARIA ISABEL Infusion: 11/21/19 22:29 Dose: 100 mls/hr Documented by: MARIA ISABEL Admin: 11/21/19 21:29 Dose: 100 mls/hr Documented by: MARIA ISABEL Infusion: 11/21/19 16:52 Dose: 100 mls/hr Documented by: MARIA ISABEL Admin: 11/21/19 15:52 Dose: 100 mls/hr Documented by: Infusion: 11/21/19 10:52 Dose: 0 mls/hr Documented by: Admin: 11/21/19 09:52 Dose: 100 mls/hr Documented by: Infusion: 11/21/19 05:05 Dose: 0 mls/hr Documented by: Admin: 11/21/19 04:06 Dose: 100 mls/hr Documented by: Infusion: 11/21/19 00:30 Dose: 0 mls/hr Documented by: Admin: 11/20/19 23:30 Dose: 100 mls/hr Documented by: Infusion: 11/20/19 16:13 Dose: 0 mls/hr Documented by: Admin: 11/20/19 15:13 Dose: 100 mls/hr Documented by: Infusion: 11/20/19 10:42 Dose: 0 mls/hr Documented by: Admin: 11/20/19 09:42 Dose: 100 mls/hr Documented by: Infusion: 11/20/19 05:15 Dose: 0 mls/hr Documented by: Admin: 11/20/19 04:13 Dose: 100 mls/hr Documented by: Infusion: 11/19/19 23:30 Dose: 0 mls/hr Documented by: Admin: 11/19/19 22:24 Dose: 100 mls/hr Documented by: DIVYA Lamotrigine (Lamictal) 200 mg PO DAILY JACK [facility] Admin: 11/22/19 10:04 Dose: 200 mg Documented by: Admin: 11/21/19 08:31 Dose: 200 mg Documented by: Admin: 11/20/19 09:41 Dose: 200 mg Documented by: HE Nicotine (Nicoderm) 21 mg TOPICAL DAILY@1000 [facility] Last Admin: 11/22/19 10:08 Dose: 21 mg Documented by: Admin: 11/21/19 09:53 Dose: 21 mg Documented by: Admin: 11/20/19 09:42 Dose: 21 mg Documented by: HE Omeprazole (Prilosec) 40 mg PO ACB [facility] Last Admin: 11/22/19 10:03 Dose: 40 mg Documented by: Admin: 11/21/19 08:31 Dose: 40 mg Documented by: Admin: 11/20/19 07:55 Dose: 40 mg Documented by: HE Quetiapine Fumarate (Seroquel) 200 mg PO QHS [facility] Last Admin: 11/21/19 21:37 Dose: 200 mg Documented by: MARIA ISABEL Admin: 11/20/19 20:12 Dose: 200 mg Documented by: Admin: 11/19/19 20:48 Dose: 200 mg Documented by: DIVYA Shift Summary 11/22/19 04:47 Shift Summary by Marla Aj Pt. concerned about swelling in scrotum this am. Pt cont. to be on clear liquid diet. A&O, Up to chair with SBA, medicated with Dilaudid IV. IV NS at 100 cc/hr. in left Wrist. RA, VSS. Freely voiding clear yellow urine. Rescue Inhaler dispensed from pharm. will bring other inhaler this AM. Left low abd. incision with jared, tegaderm over LULY site with shadow drainage and minimal SS fluid. Will update at bedside report. Initialized on 11/22/19 04:47 - END OF NOTE
--- NOTE | 2019-11-25 11:32 | Operative Note ---
DATE OF OPERATION: 11/19/2019 PREOPERATIVE DIAGNOSES: Incarcerated left inguinal hernia with partial colonic obstruction. POSTOPERATIVE DIAGNOSES: Incarcerated left inguinal hernia with strangulated appendiceal epiploica from the left colon with partial colonic obstruction. PROCEDURE: Left groin exploration with excision of appendiceal epiploica and primary left inguinal hernia repair. SURGEON: Eileen Zuniga M.D. FINDINGS: Incarcerated appendiceal epiploicae from the sigmoid colon with Hernandez-type hernia of the sigmoid colon without complete obstruction. The colon was viable and not severely inflamed. DESCRIPTION OF PROCEDURE: Under general anesthesia, the patient's abdomen and groin were prepped and draped in the sterile field. A timeout procedure was carried out as per protocol. A standard left inguinal incision was made. The incision was extended through the superficial fascia which was significantly edematous. It was extended down to the aponeurosis. The aponeurosis was inflamed and was tightly compressing and obstructing a large hernia sac that was external to the external ring. The aponeurosis was opened. A very thickened cord extending down to the testicle was delivered into the operative field. Exploration of the cord revealed a very thickened hernia sac. The hernia sac was incised, and a small amount of turbid fluid was expressed. The hernia sac contained a very edematous, reddened, thickened, inflamed appendiceal epiploica. Using gentle traction, the appendiceal epiploica was delivered into the operative field through the internal ring. There was a Hernandez-type hernia involving the lateral aspect of the sigmoid colon from which the appendiceal epiploica originated. The appendiceal epiploica was dissected back to the wall of the colon. It was clamped and then excised. The base was tied with two sutures of 3-0 Vicryl. The wall of the colon was explored and except for mild thickening and edema, there was no vascular compromise of the colon wall. The colon was pushed back into the peritoneal cavity. The neck of the hernia sac was suture ligated with three separate sutures of 3-0 Monocryl. This was done to try to get a secure closure. The cord was further explored and another small lipoma was noted. It was clamped and excised. It was tied with 3-0 Vicryl ties. Copious irrigation was carried out. The internal oblique anterior fascia was incised to make a relaxing incision. The conjoint tendon was then sutured down to the Parish's ligament using multiple interrupted sutures of 2-0 Prolene. This was continued back to the internal ring. No mesh was used. This was felt to be a very secure closure. Further inspection did not reveal any purulence. The aponeurosis was closed over the residual edematous cord using 2-0 Vicryl. Irrigation in the subcutaneous tissue was carried out and the subcutaneous tissue was closed with 2-0 Vicryl. The skin was closed with jared. A Tegaderm dressing was placed. The patient tolerated the procedure well. He was awakened, transferred to a bed, and taken to the postanesthetic care unit in stable, satisfactory condition. LCS:neida Job ID: [id number] Doc ID: [id number] Eileen Zuniga M.D.
== END 2019-11-22 15:15 | disposition home or self-care (01) | DRG 351 ==
LOC: ED 01:57 → MEDSUR 05:00
PROVIDERS: ADMIT Family Medicine Adult Medicine; ATTEND Family Medicine Adult Medicine